=== PATIENT | female | born 1980 | race African-American/Black ===

== ENCOUNTER 2017-12-28 00:22 | Emergency (ER) | payer OTHER ==
[~2017-12-28] VITALS: Ht 157.5 cm; Wt 72.6 kg
--- NOTE | 2017-12-28 00:26 | ED GENERAL ADULT ---
History of Present Illness General Chief Complaint: Upper Respiratory Sx/Fever Stated Complaint: CHILLS,BODYACHES Source: patient, EMS Exam Limitations: clinical condition Vital Signs & Intake/Output Vital Signs & Intake/Output Vital Signs Date Time Temp Pulse Resp B/P B/P Pulse O2 O2 Flow FiO2 Mean Ox Delivery Rate 12/28 208 98.4 88 18 176/79 99 Room Air 12/28 0208 99 Room Air 12/28 0042 98 12/28 0024 98.2 120 20 193/109 100 Room Air Allergies Coded Allergies: No Known Allergies (12/28/17) Reconcile Medications Ibuprofen 600 MG TABLET 1 TAB PO TID PRN pain with food Omeprazole Magnesium (Prilosec Otc) 20 MG TABLET.DR 1 TAB PO DAILY PRN abdominal discomfort Ondansetron (Zofran Odt) 4 MG TAB.RAPDIS 1 TAB SL TID nausea, vomiting Triage Nurses Notes Reviewed? yes Onset: Gradual Duration: day(s):, waxing and waning Timing: recent history Injury Environment: home Severity: mild Modifying Factors: Improves With: rest. Associated Symptoms: CHILLS HPI: 37 yo woman presents with 2 days of chills, subjective fever, body aches, mild dry cough and chest tightness. She also feels occasional nausea, at least 5 episodes of vomiting and nausea. She notes no phlegm, dyspnea. She is otherwise well. Past History Travel History Traveled to [place] past 21 day No Medical History Any Pertinent Medical History? none Surgical History Surgical History: none Family History Hx Contributory? No Review of Systems Review of Systems Constitutional: Reports: no symptoms. EENTM: Reports: no symptoms. Respiratory: Reports: no symptoms. Cardiovascular: Reports: no symptoms. GI: Reports: no symptoms. Genitourinary: Reports: no symptoms. Musculoskeletal: Reports: no symptoms. Skin: Reports: no symptoms. Neurological/Psychological: Reports: no symptoms. Hematologic/Endocrine: Reports: no symptoms. Immunologic/Allergic: Reports: no symptoms. All Other Systems: Reviewed and Negative Physical Exam Physical Exam General Appearance: well developed/nourished, moderate distress Head: atraumatic Eyes: Bilateral: normal appearance. Ears, Nose, Throat: normal pharynx, normal ENT inspection Neck: normal inspection, supple, full range of motion Respiratory: normal breath sounds, no respiratory distress, quiet respiration, lungs clear, parasternal chest wall tenderness Cardiovascular: regular rate/rhythm Gastrointestinal: normal bowel sounds, soft, non-tender, no organomegaly Back: normal inspection, normal range of motion Extremities: normal inspection, normal capillary refill, normal range of motion, no edema Neurologic/Psych: no motor/sensory deficits, awake, alert, oriented x 3 Skin: intact, normal color, warm/dry Core Measures ACS in differential dx? No CVA/TIA Diagnosis: No Sepsis Present: No Sepsis Focused Exam Completed? No Progress Differential Diagnoses I considered the following diagnoses in my evaluation of the patient: influenza, viral syndrome vs other. Plan of Care: Orders Procedure Date/time Status RAPID VIRAL INFLUENZA A 12/28 27 Complete TROPONIN LEVEL 12/28 27 Complete LIPASE 12/28 27 Complete HEPATIC FUNCTION PANEL 12/28 27 Complete HUMAN BETA HCG SCREEN 12/28 27 Complete CBC WITHOUT DIFFERENTIAL 12/28 27 Complete BASIC METABOLIC PANEL 12/28 27 Complete AMYLASE 12/28 27 Complete EKG 12/28 27 Active Laboratory Tests 12/28/17 0039: Anion Gap 14, Estimated GFR > 60, BUN/Creatinine Ratio 14.3, Glucose 105 H, Calcium 9.7, Total Bilirubin 0.5, Direct Bilirubin 0.2, AST 25, ALT 19, Alkaline Phosphatase 59, Troponin I < 0.01, Total Protein 7.4, Albumin 4.3, Amylase 58, Lipase 86, Total Beta HCG NEGATIVE, CBC w Diff NO MAN DIFF REQ, RBC 4.53, MCV 86.0, MCH 27.6, MCHC 32.1 L, RDW 14.1, MPV 8.5, Gran % 70.3, Lymphocytes % 18.6 L, Monocytes % 9.3, Eosinophils % 1.5, Basophils % 0.3, Absolute Granulocytes 6.0, Absolute Lymphocytes 1.6, Absolute Monocytes 0.8 H, Absolute Eosinophils 0.1, Absolute Basophils 0 Microbiology 12/28 34 NASOPHARYN: Influenza Virus A & B Rapid Smear - COMP Diagnostic Imaging: Viewed by Me: Radiology Read. Discussed w/RAD: Radiology Read. CXR Impression: PATIENT: HORTENSIA LI PRESENT AGE: 37 PATIENT ACCOUNT NO: [id number] : 81 LOCATION: [facility] ORDERING PHYSICIAN: Baltazar Bui MD SERVICE DATE: 12/28/17 EXAM TYPE: RAD - XRY- PORTABLE CHEST XRAY EXAMINATION: XR PORTABLE CHEST CLINICAL INFORMATION: Dyspnea COMPARISON: None TECHNIQUE: Portable frontal view of the chest was obtained. 1: 02 AM FINDINGS: No significant abnormality is noted involving the heart, lungs, mediastinum, bony thorax or soft tissues. IMPRESSION: Unremarkable examination. DICTATED BY: Poncho Lau MD DATE/TIME DICTATED:12/28/17116 HOOK UP :GONZALO DATE/TIME TRANSCRIBED:12/28/17116 CONFIDENTIAL, DO NOT COPY WITHOUT APPROPRIATE AUTHORIZATION. <Electronically signed in Other Vendor System> SIGNED BY: Poncho Lau MD 12/28/17 012 Initial ED EKG: sinus tach w/ artifact Departure Departure Disposition: HOME OR SELF CARE Condition: Stable Clinical Impression Primary Impression: Viral syndrome Secondary Impressions: Myalgia Referrals: Tacho WADDELL,Jose Thompson (PCP/Family) Departure Forms: Customer Survey General Discharge Information Prescriptions: Current Visit Scripts Ondansetron (Zofran Odt) 1 TAB SL TID #10 TAB Ibuprofen 1 TAB PO TID PRN pain #30 TAB with food Omeprazole Magnesium (Prilosec Otc) 1 TAB PO DAILY PRN abdominal discomfort #30 TAB Comments pt with benign labs, tolerated fluids in ED... safe for discharge... gave rx for supportive measures. Critical Care Note Critical Care Note Critical Care Time: non-applicable
[2017-12-28 00:50] LABS: ABSOLUTE BASOPHIL COUNT 0 /CUMM (0.0-0.2); ABSOLUTE EOSINOPHIL COUNT 0.1 /CUMM (0.0-0.7); ABSOLUTE LYMPH COUNT 1.6 /CUMM (1.2-3.4); ABSOLUTE MONOCYTE COUNT 0.8 /CUMM (0.10-0.60); BASOPHIL % 0.3 % (0.0-2.0); EOSINOPHIL % 1.5 % (0-5); GRANULOCYTE % 70.3 % (42.2-75.2); MEAN CORPUSCULAR HGB 27.6 PG (27.0-31.0); MEAN CORPUSCULAR HGB CONC 32.1 G/DL (33.0-37.0); MEAN PLATELET VOLUME 8.5 FL (7.4-10.4); PLATELET COUNT 201 /CUMM (130-400); RBC DISTRIBUTION WIDTH 14.1 % (11.5-14.5); RED BLOOD CELL CT 4.53 /CUMM (4.20-5.40); WHITE BLOOD CELL COUNT 8.6 /CUMM (4.8-10.8)
--- NOTE | 2017-12-28 01:21 | RADIOLOGY REPORT ---
EXAMINATION: XR PORTABLE CHEST CLINICAL INFORMATION: Dyspnea COMPARISON: None TECHNIQUE: Portable frontal view of the chest was obtained. 1:02 AM FINDINGS: No significant abnormality is noted involving the heart, lungs, mediastinum, bony thorax or soft tissues. IMPRESSION: Unremarkable examination.
[2017-12-28] MEDS ORDERED: IBUPROFEN600 M1 PO (01:44)
[2017-12-28] MEDS ORDERED: ZOFRAN ODT4 M1 SL (01:44)
[2017-12-28] MEDS ORDERED: PRILOSEC OTC20 M1 PO (01:44)
[2017-12-28 02:09] VITALS: BP 176/79
== END 2017-12-28 02:10 ==
LOC: ERH 00:22
PROVIDERS: Pediatrics
DX: B34.9 Viral infection, unspecified (principal); M79.1 Myalgia; R50.9 Fever, unspecified; R07.89 Other chest pain
CPT/HCPCS: 1263; 71045; 87804; 87804-59; 93005; 93010; 96374; 96375; J0131; J1885; J2405